=== PATIENT | female | born 1945 | race Caucasian/White ===

== ENCOUNTER 2017-07-30 17:32 | Inpatient (IN) ==
[2017-07-30] MEDS ORDERED: methylPREDNISolone SOD SUC 125 MG/2 ML VIAL IV STA (19:14)
[2017-07-30] MEDS ORDERED: LEVOFLOXACIN INJ 750 MG in PREMIX 1 EACH IV STA (19:14)
[2017-07-30] MEDS ORDERED: ONDANSETRON 4 MG/2 ML VIAL IV STA (19:14)
[2017-07-30] MEDS ORDERED: ALBUTEROL NEB SOLN 5 MG/ML 20 ML/BOTTLE RESP TX SCH (19:30)
[2017-07-30 19:39] LABS: Basophils # 0.1 10*3/uL (0.0-0.2); Basophils % 0.6 % (0.0-0.8); Eosinophils # 0.2 10*3/uL (0.0-0.87); Eosinophils % 1.5 % (0.00-10.9); Hematocrit 40.1 VOL% (35.7-47.0); Hemoglobin 13.7 GM/DL (12.0-16.0); Immature Granulocytes % 0.9 %; Immature Granulocytes Absolute 0.13 #; Lymphocytes # 2.2 10*3/uL (1.4-4.0); Lymphocytes % 15.7 % (21.3-54.2); Mean Corpuscular HGB Conc 34.2 GM/DL (32-36); Mean Corpuscular Hemoglobin 30 PG (27-34); Mean Corpuscular Volume 87.7 FL (87-102); Mean Platelet Volume 10.7 FL (9.6-12.0); Monocytes # 1.7 10*3/uL (0.11-0.8); Monocytes % 12.1 % (1.7-12.7); Neutrophils # 9.6 10*3/uL (1.4-7.4); Neutrophils % 69.2 % (38.7-73.9); Platelet Count 266 T/CUMM (130-400); Red Blood Count 4.57 MC/CUMM (3.8-5.5); Red Cell Distribution Width 12.4 % (9.3-17.3); White Blood Count 13.8 T/CUMM (4-12)
[2017-07-30 19:55] LABS: INR 1.1; PT Patient Result 11.3 SECS; Partial Thromboplastin Time 32.7 SECS (0-40)
[2017-07-30 20:21] LABS: Alanine Aminotransferase 37 U/L (13-56); Albumin 2.8 G/DL (3.4-5.0); Alkaline Phosphatase 73 U/L (45-117); Aspartate Amino Transferase 39 U/L (0-37); Blood Urea Nitrogen 8 MG/DL (7-18); Calcium 8.9 MG/DL (8.5-10.1); Glucose 162 MG/DL (74-106); Osmolality,Calculated 265.5 MOS/KG (273-304); Potassium 3.3 MMOL/L (3.5-5.1); Sodium 132 MMOL/L (136-145); Total Protein 7.3 G/DL (6.4-8.3); Troponin I Only < 0.015 NG/ML (0.00-0.045)
[2017-07-30] MEDS ORDERED: POTASSIUM BICARB EFFERVESCENT 25 MEQ TABLET PO ONE (20:36)
[2017-07-30] MEDS ORDERED: ALBUTEROL/IPRATROPIUM 3 ML NEB RESP TX STA (20:36)
[2017-07-30] MEDS ORDERED: ALBUTEROL 2.5 MG/3 ML NEB RESP TX PRN (21:48)
[2017-07-30] MEDS ORDERED: ACETAMINOPHEN 325 MG TABLET PO PRN (21:49)
[2017-07-30] MEDS ORDERED: ONDANSETRON 4 MG/2 ML VIAL IV PRN (21:49)
[2017-07-30] MEDS: SODIUM CHLORIDE 0.9% 1,000 ML IV SCH (23:18)
[2017-07-30] MEDS: guaiFENesin/DM ER 600-30 MG TABLET PO SCH (23:18)
[2017-07-31] MEDS: ALBUTEROL/IPRATROPIUM 3 ML NEB RESP TX SCH ×4 (00:20→18:50)
[2017-07-31] MEDS: methylPREDNISolone SOD SUC 40 MG/1 ML VIAL IV SCH ×3 (03:18→20:41)
[2017-07-31 06:14] LABS: Basophils % 0.4 % (0.0-0.8); Eosinophils % 0.1 % (0.00-10.9); Hematocrit 39.9 VOL% (35.7-47.0); Hemoglobin 13.7 GM/DL (12.0-16.0); Immature Granulocytes % 1.2 %; Immature Granulocytes Absolute 0.12 #; Lymphocytes # 1.1 10*3/uL (1.4-4.0); Lymphocytes % 11.4 % (21.3-54.2); Mean Corpuscular HGB Conc 34.3 GM/DL (32-36); Mean Corpuscular Hemoglobin 30 PG (27-34); Monocytes # 0.4 10*3/uL (0.11-0.8); Monocytes % 3.6 % (1.7-12.7); Neutrophils # 8.1 10*3/uL (1.4-7.4); Neutrophils % 83.3 % (38.7-73.9); Platelet Count 266 T/CUMM (130-400); Red Blood Count 4.64 MC/CUMM (3.8-5.5); Red Cell Distribution Width 12.4 % (9.3-17.3); White Blood Count 9.7 T/CUMM (4-12)
[2017-07-31 06:16] LABS: Calcium 8.7 MG/DL (8.5-10.1); Osmolality,Calculated 281.5 MOS/KG (273-304); Potassium 4.2 MMOL/L (3.5-5.1)
[2017-07-31 06:55] LABS: Band Neutrophils 1 % (0-10); Hypochromasia 1+; Lymphocytes 16 % (20-55); Microcytosis Slight; Ovalocytes Slight; Platelet Estimate Adequate; Segmented Neutrophils 79 % (50-85); Total Cells Counted 100
[2017-07-31] MEDS: SODIUM CHLORIDE 0.9% 1,000 ML IV SCH ×2 (07:10→15:15)
[2017-07-31] MEDS: OLMESARTAN 20 MG TABLET PO SCH (08:29)
[2017-07-31] MEDS: ASPIRIN EC 81 MG TABLET PO SCH (08:29)
[2017-07-31] MEDS: ASCORBIC ACID 500 MG TABLET PO SCH (08:29)
[2017-07-31] MEDS: guaiFENesin/DM ER 600-30 MG TABLET PO SCH ×2 (08:29→20:40)
[2017-07-31] MEDS: PANTOPRAZOLE 40 MG TABLET PO SCH (08:29)
[2017-07-31] MEDS: MULTIVITAMIN (CENTRUM) TABLET PO SCH (08:29)
[2017-07-31] MEDS: POTASSIUM CHLORIDE 8 MEQ CAPSULE PO SCH (08:29)
[2017-07-31] MEDS: CITALOPRAM 40 MG TABLET PO SCH (08:29)
[2017-07-31] MEDS: ENOXAPARIN 40 MG/0.4 ML SYRINGE SUBCUT SCH (08:30)
[2017-07-31] MEDS: LEVOFLOXACIN INJ 750 MG in PREMIX 1 EACH IV SCH (20:43)
[2017-08-01] MEDS: SODIUM CHLORIDE 0.9% 1,000 ML IV SCH ×3 (00:43→21:02)
[2017-08-01] MEDS: ALBUTEROL/IPRATROPIUM 3 ML NEB RESP TX SCH ×4 (01:16→19:05)
[2017-08-01] MEDS: methylPREDNISolone SOD SUC 40 MG/1 ML VIAL IV SCH ×3 (04:31→20:54)
[2017-08-01 06:42] LABS: Basophils # 0.1 10*3/uL (0.0-0.2); Basophils % 0.3 % (0.0-0.8); Hematocrit 37.4 VOL% (35.7-47.0); Hemoglobin 12.3 GM/DL (12.0-16.0); Lymphocytes # 1.1 10*3/uL (1.4-4.0); Lymphocytes % 7.3 % (21.3-54.2); Mean Corpuscular HGB Conc 32.9 GM/DL (32-36); Mean Corpuscular Hemoglobin 29 PG (27-34); Mean Platelet Volume 10.8 FL (9.6-12.0); Monocytes # 0.9 10*3/uL (0.11-0.8); Neutrophils # 12.7 10*3/uL (1.4-7.4); Neutrophils % 84.4 % (38.7-73.9); Platelet Count 308 T/CUMM (130-400); Red Cell Distribution Width 12.7 % (9.3-17.3); White Blood Count 15.1 T/CUMM (4-12)
[2017-08-01 07:03] LABS: Calcium 8.3 MG/DL (8.5-10.1); Osmolality,Calculated 281.5 MOS/KG (273-304); Potassium 3.6 MMOL/L (3.5-5.1)
[2017-08-01] MEDS: CITALOPRAM 40 MG TABLET PO SCH (08:48)
[2017-08-01] MEDS: MULTIVITAMIN (CENTRUM) TABLET PO SCH (08:48)
[2017-08-01] MEDS: PANTOPRAZOLE 40 MG TABLET PO SCH (08:49)
[2017-08-01] MEDS: ASPIRIN EC 81 MG TABLET PO SCH (08:49)
[2017-08-01] MEDS: guaiFENesin/DM ER 600-30 MG TABLET PO SCH ×2 (08:49→20:53)
[2017-08-01] MEDS: ASCORBIC ACID 500 MG TABLET PO SCH (08:49)
[2017-08-01] MEDS: OLMESARTAN 20 MG TABLET PO SCH (08:49)
[2017-08-01] MEDS: ENOXAPARIN 40 MG/0.4 ML SYRINGE SUBCUT SCH (08:50)
[2017-08-01] MEDS: LEVOFLOXACIN INJ 750 MG in PREMIX 1 EACH IV SCH (20:59)
[2017-08-02] MEDS: ALBUTEROL/IPRATROPIUM 3 ML NEB RESP TX SCH ×4 (01:03→19:19)
[2017-08-02 05:52] LABS: Basophils # 0.1 10*3/uL (0.0-0.2); Basophils % 0.3 % (0.0-0.8); Hemoglobin 12.6 GM/DL (12.0-16.0); Immature Granulocytes % 4.8 %; Immature Granulocytes Absolute 0.79 #; Lymphocytes # 1.2 10*3/uL (1.4-4.0); Lymphocytes % 7.3 % (21.3-54.2); Mean Corpuscular HGB Conc 32.3 GM/DL (32-36); Mean Corpuscular Hemoglobin 29 PG (27-34); Mean Corpuscular Volume 90.9 FL (87-102); Mean Platelet Volume 10.7 FL (9.6-12.0); Monocytes # 1.1 10*3/uL (0.11-0.8); Monocytes % 6.5 % (1.7-12.7); Neutrophils # 13.3 10*3/uL (1.4-7.4); Neutrophils % 81.1 % (38.7-73.9); Platelet Count 305 T/CUMM (130-400); Red Blood Count 4.29 MC/CUMM (3.8-5.5); Red Cell Distribution Width 12.8 % (9.3-17.3); White Blood Count 16.4 T/CUMM (4-12)
[2017-08-02 06:14] LABS: Hypochromasia 1+; Platelet Estimate Adequate
[2017-08-02 06:15] LABS: Microcytosis Slight
[2017-08-02 06:20] LABS: Calcium 8.6 MG/DL (8.5-10.1); Osmolality,Calculated 283.4 MOS/KG (273-304); Potassium 4.2 MMOL/L (3.5-5.1)
[2017-08-02] MEDS: SODIUM CHLORIDE 0.9% 1,000 ML IV SCH (06:50)
[2017-08-02] MEDS: guaiFENesin/DM ER 600-30 MG TABLET PO SCH ×2 (08:51→20:46)
[2017-08-02] MEDS: OLMESARTAN 20 MG TABLET PO SCH (08:51)
[2017-08-02] MEDS: POTASSIUM CHLORIDE 8 MEQ CAPSULE PO SCH (08:51)
[2017-08-02] MEDS: ASPIRIN EC 81 MG TABLET PO SCH (08:51)
[2017-08-02] MEDS: MULTIVITAMIN (CENTRUM) TABLET PO SCH (08:51)
[2017-08-02] MEDS: ENOXAPARIN 40 MG/0.4 ML SYRINGE SUBCUT SCH (08:51)
[2017-08-02] MEDS: PANTOPRAZOLE 40 MG TABLET PO SCH (08:51)
[2017-08-02] MEDS: CITALOPRAM 40 MG TABLET PO SCH (08:51)
[2017-08-02] MEDS: ASCORBIC ACID 500 MG TABLET PO SCH (08:51)
[2017-08-02] MEDS: methylPREDNISolone SOD SUC 40 MG/1 ML VIAL IV SCH ×2 (08:52→20:46)
[2017-08-02] MEDS: LISINOPRIL 10 MG TABLET PO SCH ×2 (12:24→20:45)
[2017-08-02] MEDS: LEVOFLOXACIN INJ 750 MG in PREMIX 1 EACH IV SCH (20:49)
[2017-08-03] MEDS: ALBUTEROL/IPRATROPIUM 3 ML NEB RESP TX SCH ×4 (00:04→19:37)
[2017-08-03] MEDS: SODIUM CHLORIDE 0.9% 1,000 ML IV SCH ×3 (01:55→18:30)
[2017-08-03 08:54] LABS: Basophils % 0.2 % (0.0-0.8); Hematocrit 31.4 VOL% (35.7-47.0); Hemoglobin 10.5 GM/DL (12.0-16.0); Immature Granulocytes Absolute 0.97 #; Lymphocytes # 1.5 10*3/uL (1.4-4.0); Lymphocytes % 9.2 % (21.3-54.2); Mean Corpuscular HGB Conc 33.4 GM/DL (32-36); Mean Corpuscular Hemoglobin 30 PG (27-34); Mean Corpuscular Volume 88.5 FL (87-102); Mean Platelet Volume 10.7 FL (9.6-12.0); Monocytes # 1.2 10*3/uL (0.11-0.8); Monocytes % 7.4 % (1.7-12.7); NRBC # 0.02 10*3/uL; Neutrophils # 12.6 10*3/uL (1.4-7.4); Neutrophils % 77.2 % (38.7-73.9); Platelet Count 303 T/CUMM (130-400); Red Blood Count 3.55 MC/CUMM (3.8-5.5); Red Cell Distribution Width 12.9 % (9.3-17.3); White Blood Count 16.3 T/CUMM (4-12)
[2017-08-03] MEDS ORDERED: FLUCONAZOLE 100 MG TABLET PO SCH (09:00)
[2017-08-03] MEDS: OLMESARTAN 20 MG TABLET PO SCH (09:10)
[2017-08-03] MEDS: MULTIVITAMIN (CENTRUM) TABLET PO SCH (09:11)
[2017-08-03] MEDS: ENOXAPARIN 40 MG/0.4 ML SYRINGE SUBCUT SCH (09:12)
[2017-08-03] MEDS: ASPIRIN EC 81 MG TABLET PO SCH (09:12)
[2017-08-03] MEDS: PANTOPRAZOLE 40 MG TABLET PO SCH (09:12)
[2017-08-03] MEDS: CITALOPRAM 40 MG TABLET PO SCH (09:12)
[2017-08-03] MEDS: LISINOPRIL 10 MG TABLET PO SCH (09:12)
[2017-08-03] MEDS: ASCORBIC ACID 500 MG TABLET PO SCH (09:12)
[2017-08-03] MEDS: guaiFENesin/DM ER 600-30 MG TABLET PO SCH ×2 (09:12→20:29)
[2017-08-03] MEDS: methylPREDNISolone SOD SUC 40 MG/1 ML VIAL IV SCH ×2 (09:15→20:31)
[2017-08-03 09:30] LABS: Calcium 8.3 MG/DL (8.5-10.1); Osmolality,Calculated 284.3 MOS/KG (273-304); Potassium 4.2 MMOL/L (3.5-5.1)
[2017-08-03 09:44] LABS: Hypochromasia 2+; Lymphocytes 5 % (20-55); Microcytosis 1+; Platelet Estimate Adequate; Segmented Neutrophils 87 % (50-85); Total Cells Counted 100
[2017-08-03] MEDS: LISINOPRIL 20 MG TABLET PO SCH (20:29)
[2017-08-03] MEDS: LEVOFLOXACIN INJ 750 MG in PREMIX 1 EACH IV SCH (20:30)
[2017-08-04] MEDS: ALBUTEROL/IPRATROPIUM 3 ML NEB RESP TX SCH ×2 (00:17→07:00)
[2017-08-04 06:25] LABS: Basophils # 0.1 10*3/uL (0.0-0.2); Basophils % 0.4 % (0.0-0.8); Hematocrit 33.6 VOL% (35.7-47.0); Hemoglobin 11.4 GM/DL (12.0-16.0); Immature Granulocytes % 8.1 %; Immature Granulocytes Absolute 1.82 #; Lymphocytes # 1.9 10*3/uL (1.4-4.0); Lymphocytes % 8.6 % (21.3-54.2); Mean Corpuscular HGB Conc 33.9 GM/DL (32-36); Mean Corpuscular Hemoglobin 30 PG (27-34); Mean Corpuscular Volume 87.7 FL (87-102); Mean Platelet Volume 10.3 FL (9.6-12.0); Monocytes # 1.2 10*3/uL (0.11-0.8); Monocytes % 5.5 % (1.7-12.7); NRBC # 0.07 10*3/uL; Neutrophils # 17.3 10*3/uL (1.4-7.4); Neutrophils % 77.4 % (38.7-73.9); Platelet Count 336 T/CUMM (130-400); Red Blood Count 3.83 MC/CUMM (3.8-5.5); Red Cell Distribution Width 13.2 % (9.3-17.3); White Blood Count 22.4 T/CUMM (4-12)
[2017-08-04 07:02] LABS: Band Neutrophils 1 % (0-10); Calcium 8.6 MG/DL (8.5-10.1); Hypochromasia Slight; Lymphocytes 7 % (20-55); Microcytosis 1+; Osmolality,Calculated 282.5 MOS/KG (273-304); Platelet Estimate Adequate; Segmented Neutrophils 89 % (50-85); Total Cells Counted 100
[2017-08-04] MEDS: POTASSIUM CHLORIDE 8 MEQ CAPSULE PO SCH (09:08)
[2017-08-04] MEDS: ASPIRIN EC 81 MG TABLET PO SCH (09:08)
[2017-08-04] MEDS: ENOXAPARIN 40 MG/0.4 ML SYRINGE SUBCUT SCH (09:08)
[2017-08-04] MEDS: MULTIVITAMIN (CENTRUM) TABLET PO SCH (09:08)
[2017-08-04] MEDS: guaiFENesin/DM ER 600-30 MG TABLET PO SCH (09:08)
[2017-08-04] MEDS: LISINOPRIL 20 MG TABLET PO SCH (09:09)
[2017-08-04] MEDS: ASCORBIC ACID 500 MG TABLET PO SCH (09:09)
[2017-08-04] MEDS: PANTOPRAZOLE 40 MG TABLET PO SCH (09:09)
[2017-08-04] MEDS: CITALOPRAM 40 MG TABLET PO SCH (09:09)
[2017-08-04] MEDS: OLMESARTAN 20 MG TABLET PO SCH (09:09)
[2017-08-04] MEDS: methylPREDNISolone SOD SUC 40 MG/1 ML VIAL IV SCH (09:09)
[2017-08-04 14:28] VITALS: BP 142/84
== END 2017-08-04 14:00 | disposition home or self-care (01) | DRG 871 ==
LOC: N.ED 17:32 → N.EDINP 21:17 → N.2E 22:34

== ENCOUNTER 2017-12-19 05:39 | Inpatient (IN) ==
[2017-12-13 14:24] LABS: Basophils % 0.6 % (0.0-0.8); Eosinophils # 0.2 10*3/uL (0.0-0.87); Eosinophils % 2.6 % (0.00-10.9); Hematocrit 46.1 VOL% (35.7-47.0); Immature Granulocytes % 0.3 %; Immature Granulocytes Absolute 0.02 #; Lymphocytes # 1.9 10*3/uL (1.4-4.0); Lymphocytes % 27.5 % (21.3-54.2); Mean Corpuscular HGB Conc 32.5 GM/DL (32-36); Mean Corpuscular Hemoglobin 29 PG (27-34); Mean Corpuscular Volume 87.8 FL (87-102); Mean Platelet Volume 10.8 FL (9.6-12.0); Monocytes # 0.7 10*3/uL (0.11-0.8); Monocytes % 9.4 % (1.7-12.7); Neutrophils # 4.2 10*3/uL (1.4-7.4); Neutrophils % 59.6 % (38.7-73.9); Platelet Count 226 T/CUMM (130-400); Red Blood Count 5.25 MC/CUMM (3.8-5.5); Red Cell Distribution Width 12.8 % (9.3-17.3)
[2017-12-13 14:30] LABS: Apearance,Urine CLEAR (Clear); Bilirubin,Urine Negative (Negative); Blood, Urine Negative (Negative); Glucose,Urine (UA) Negative (Negative); Ketones,Urine Negative (Negative); Nitrite,Urine Negative (Negative); Protein,Urine Negative; RBC,Urine 1 /HPF (0-4); Squamous Epithelial Cell,Urine Occasional /HPF (0-10); Urine Color Straw (Yellow); Urine Specific Gravity 1.008 (1.001-1.035); Urine Urobilinogen < 2.0 EU/DL (0.2-1.0); WBC,Urine 1 /HPF (0-6)
[2017-12-13 14:34] LABS: PT Patient Result 10.4 SECS; Partial Thromboplastin Time 26.7 SECS (0-40)
[2017-12-13 14:47] LABS: Alanine Aminotransferase 24 U/L (13-56); Albumin 3.4 G/DL (3.4-5.0); Alkaline Phosphatase 68 U/L (45-117); Aspartate Amino Transferase 15 U/L (0-37); Bilirubin,Total < 0.39 MG/DL (0.2-1.0); Blood Urea Nitrogen 13 MG/DL (7-18); Calcium 8.9 MG/DL (8.5-10.1); Glucose 109 MG/DL (74-106); Osmolality,Calculated 275.7 MOS/KG (273-304); Sodium 138 MMOL/L (136-145); Total Protein 6.8 G/DL (6.4-8.3)
[2017-12-19] MEDS ORDERED: VANCOMYCIN 1,000 MG VIAL ONE (05:56)
[2017-12-19] MEDS ORDERED: ROPIVACAINE 0.5% 30 ML VIAL ONE (06:40)
[2017-12-19] MEDS: LACTATED RINGERS 1,000 ML IV SCH ×5 (06:46→23:20)
[2017-12-19] MEDS ORDERED: VANCOMYCIN INJ 1,000 MG in SODIUM CHLORIDE 0.9% 250 ML IV ONE (07:00)
[2017-12-19] MEDS ORDERED: MAGNESIUM HYDROXIDE SUSP 30 ML UDCUP PO PRN (07:24)
[2017-12-19] MEDS ORDERED: oxyCODONE IR 5 MG TABLET PO PRN ×2 (07:24)
[2017-12-19] MEDS ORDERED: MORPHINE 4 MG/1 ML VIAL IV PRN ×2 (07:24)
[2017-12-19] MEDS ORDERED: diphenhydrAMINE CAP 25 MG CAPSULE PO PRN (07:24)
[2017-12-19] MEDS ORDERED: ONDANSETRON 4 MG/2 ML VIAL IV PRN ×2 (07:24→09:28)
[2017-12-19] MEDS ORDERED: ZALEPLON 5 MG CAPSULE PO PRN (07:24)
[2017-12-19] MEDS ORDERED: ceFAZolin 2,000 MG in PREMIX 1 EACH IV ONE (08:00)
[2017-12-19] MEDS ORDERED: BACITRACIN OINT 0.9 GM PACK TOP ONE (08:26)
[2017-12-19] MEDS ORDERED: MIDAZOLAM 2 MG/2 ML VIAL ONE (09:19)
[2017-12-19] MEDS ORDERED: SEVOFLURANE 1 UNIT/15 MINUTE INH ONE (09:19)
[2017-12-19] MEDS ORDERED: BUPIVACAINE SPINAL 0.75% 2 ML AMP SPINAL ONE (09:19)
[2017-12-19] MEDS ORDERED: PROPOFOL 200 MG/20 ML VIAL IV ONE (09:19)
[2017-12-19] MEDS ORDERED: SODIUM CHLORIDE 0.9% 250 ML IV ONE (09:20)
[2017-12-19] MEDS ORDERED: fentaNYL 100 MCG/2 ML VIAL ONE (09:20)
[2017-12-19] MEDS ORDERED: GLYCOPYRROLATE 0.4 MG/2 ML VIAL ONE (09:20)
[2017-12-19] MEDS ORDERED: SODIUM CHLORIDE 0.9% 100 ML IV ONE (09:20)
[2017-12-19] MEDS ORDERED: ONDANSETRON 4 MG/2 ML VIAL ONE ×2 (09:20→09:27)
[2017-12-19] MEDS ORDERED: PHENYLEPHRINE 1 MG/10 ML SYRINGE IV ONE (09:20)
[2017-12-19] MEDS ORDERED: TRANEXAMIC ACID 1,000 MG/10 ML VIAL ONE (09:20)
[2017-12-19] MEDS ORDERED: NEOSTIGMINE 10 MG/10 ML VIAL ONE (09:20)
[2017-12-19] MEDS ORDERED: ACETAMINOPHEN 1,000 MG/100 ML VIAL IV ONE (09:20)
[2017-12-19] MEDS ORDERED: ROCURONIUM 100 MG/10 ML VIAL IV ONE (09:20)
[2017-12-19] MEDS ORDERED: MEPERIDINE 25 MG/1 ML VIAL ONE ×2 (09:27→09:44)
[2017-12-19] MEDS: MEPERIDINE 25 MG/1 ML VIAL IV PRN ×2 (09:30→09:45)
[2017-12-19] MEDS ORDERED: KETOROLAC 15 MG/1 ML VIAL ONE (09:44)
[2017-12-19] MEDS: KETOROLAC 15 MG/1 ML VIAL IV SCH ×3 (09:50→20:27)
[2017-12-19] MEDS ORDERED: ALBUTEROL 2.5 MG/3 ML NEB RESP TX PRN (11:00)
[2017-12-19] MEDS: POTASSIUM CHLORIDE 8 MEQ CAPSULE PO SCH (11:11)
[2017-12-19] MEDS: DOCUSATE SODIUM 100 MG CAPSULE PO SCH ×2 (11:11→20:28)
[2017-12-19] MEDS: PRAVASTATIN 20 MG TABLET PO SCH (11:11)
[2017-12-19] MEDS: CITALOPRAM 40 MG TABLET PO SCH (11:11)
[2017-12-19] MEDS: PANTOPRAZOLE 40 MG TABLET PO SCH (11:11)
[2017-12-19] MEDS: ACETAMINOPHEN 500 MG TABLET PO SCH ×3 (11:22→23:21)
[2017-12-19] MEDS ORDERED: TUBERCULIN SKIN TEST 0.1 ML SYRINGE INTRADERM ONE (14:04)
[2017-12-19] MEDS: ceFAZolin 2,000 MG in PREMIX 1 EACH IV SCH ×2 (14:12→22:16)
[2017-12-19] MEDS: ASCORBIC ACID 500 MG TABLET PO SCH (18:02)
[2017-12-19] MEDS: MULTIVITAMIN (CENTRUM) TABLET PO SCH (18:02)
[2017-12-20] MEDS: FONDAPARINUX 2.5 MG/0.5 ML SYRINGE SUBCUT SCH (02:46)
[2017-12-20] MEDS: KETOROLAC 15 MG/1 ML VIAL IV SCH (04:02)
[2017-12-20 04:47] LABS: Basophils % 0.3 % (0.0-0.8); Eosinophils # 0.2 10*3/uL (0.0-0.87); Eosinophils % 1.7 % (0.00-10.9); Hematocrit 39.3 VOL% (35.7-47.0); Hemoglobin 13.2 GM/DL (12.0-16.0); Immature Granulocytes % 0.4 %; Immature Granulocytes Absolute 0.04 #; Lymphocytes # 1.7 10*3/uL (1.4-4.0); Lymphocytes % 17.5 % (21.3-54.2); Mean Corpuscular HGB Conc 33.6 GM/DL (32-36); Mean Corpuscular Hemoglobin 29 PG (27-34); Mean Corpuscular Volume 86.4 FL (87-102); Monocytes # 1.1 10*3/uL (0.11-0.8); Monocytes % 11.2 % (1.7-12.7); Neutrophils # 6.5 10*3/uL (1.4-7.4); Neutrophils % 68.9 % (38.7-73.9); Platelet Count 198 T/CUMM (130-400); Red Blood Count 4.55 MC/CUMM (3.8-5.5); Red Cell Distribution Width 12.7 % (9.3-17.3); White Blood Count 9.4 T/CUMM (4-12)
[2017-12-20 05:06] LABS: Potassium 3.7 MMOL/L (3.5-5.1)
[2017-12-20] MEDS: ACETAMINOPHEN 500 MG TABLET PO SCH (06:50)
[2017-12-20] MEDS ORDERED: hydrALAZINE 20 MG/1 ML VIAL IV PRN (07:21)
[2017-12-20] MEDS ORDERED: ACETAMINOPHEN 325 MG TABLET PO PRN (07:25)
[2017-12-20] MEDS: PANTOPRAZOLE 40 MG TABLET PO SCH (08:40)
[2017-12-20] MEDS: CITALOPRAM 40 MG TABLET PO SCH (08:41)
[2017-12-20] MEDS: OLMESARTAN 20 MG TABLET PO SCH (08:41)
[2017-12-20] MEDS: DOCUSATE SODIUM 100 MG CAPSULE PO SCH ×2 (08:41→20:46)
[2017-12-20] MEDS: PRAVASTATIN 20 MG TABLET PO SCH (08:41)
[2017-12-20] MEDS: CELECOXIB 200 MG CAPSULE PO SCH (12:48)
[2017-12-20] MEDS: MULTIVITAMIN (CENTRUM) TABLET PO SCH (18:14)
[2017-12-20] MEDS: ASCORBIC ACID 500 MG TABLET PO SCH (18:14)
[2017-12-21] MEDS: FONDAPARINUX 2.5 MG/0.5 ML SYRINGE SUBCUT SCH (02:45)
[2017-12-21 05:59] LABS: Basophils % 0.3 % (0.0-0.8); Eosinophils # 0.2 10*3/uL (0.0-0.87); Eosinophils % 1.9 % (0.00-10.9); Hematocrit 39.7 VOL% (35.7-47.0); Hemoglobin 12.7 GM/DL (12.0-16.0); Immature Granulocytes % 0.3 %; Immature Granulocytes Absolute 0.03 #; Lymphocytes % 19.7 % (21.3-54.2); Mean Corpuscular Hemoglobin 28 PG (27-34); Mean Corpuscular Volume 87.6 FL (87-102); Mean Platelet Volume 10.9 FL (9.6-12.0); Monocytes # 1.1 10*3/uL (0.11-0.8); Monocytes % 11.1 % (1.7-12.7); Neutrophils # 6.6 10*3/uL (1.4-7.4); Neutrophils % 66.7 % (38.7-73.9); Platelet Count 204 T/CUMM (130-400); Red Blood Count 4.53 MC/CUMM (3.8-5.5); Red Cell Distribution Width 12.8 % (9.3-17.3); White Blood Count 9.9 T/CUMM (4-12)
[2017-12-21] MEDS: CELECOXIB 200 MG CAPSULE PO SCH (10:12)
[2017-12-21] MEDS: PANTOPRAZOLE 40 MG TABLET PO SCH (10:12)
[2017-12-21] MEDS: POTASSIUM CHLORIDE 8 MEQ CAPSULE PO SCH (10:12)
[2017-12-21] MEDS: CITALOPRAM 40 MG TABLET PO SCH (10:12)
[2017-12-21] MEDS: OLMESARTAN 20 MG TABLET PO SCH (10:12)
[2017-12-21] MEDS: PRAVASTATIN 20 MG TABLET PO SCH (10:12)
[2017-12-21] MEDS: DOCUSATE SODIUM 100 MG CAPSULE PO SCH ×2 (10:13→21:14)
[2017-12-21] MEDS: ASCORBIC ACID 500 MG TABLET PO SCH (18:28)
[2017-12-21] MEDS: MULTIVITAMIN (CENTRUM) TABLET PO SCH (18:28)
[2017-12-22] MEDS: FONDAPARINUX 2.5 MG/0.5 ML SYRINGE SUBCUT SCH (03:21)
[2017-12-22 07:44] VITALS: BP 117/76
[2017-12-22] MEDS: OLMESARTAN 20 MG TABLET PO SCH (08:50)
[2017-12-22] MEDS: CITALOPRAM 40 MG TABLET PO SCH (08:50)
[2017-12-22] MEDS: CELECOXIB 200 MG CAPSULE PO SCH (08:50)
[2017-12-22] MEDS: DOCUSATE SODIUM 100 MG CAPSULE PO SCH (08:50)
[2017-12-22] MEDS: PRAVASTATIN 20 MG TABLET PO SCH (08:51)
[2017-12-22] MEDS: PANTOPRAZOLE 40 MG TABLET PO SCH (08:51)
== END 2017-12-22 10:44 | DRG 470 ==
LOC: N.OR 05:39 → N.SDSINP 05:40 → N.3E 07:25
PROVIDERS: ADMIT Orthopaedic Surgery; ATTEND Orthopaedic Surgery